=== PATIENT | male | born 1985 | race Two or more races ===

== ENCOUNTER 2021-03-25 04:53 | Inpatient (IN) | payer SELFPAY ==
[~2021-03-25] VITALS: Ht 172.7 cm; Wt 83.0 kg
[2021-03-25] MEDS ORDERED: ONDANSETRON HCL 4 MG/2 ML VIAL IV ONE ×3 (05:30→15:15)
[2021-03-25] MEDS ORDERED: KETOROLAC TROMETH 30 MG/ML 1ML VIAL IV ONE (05:30)
[2021-03-25 05:31] LABS: Basophils # (auto) 0 10 ^3/uL (0-0.2); Basophils % (auto) 0.2 % (0.0-2.0); Eosinophils # (auto) 0 10 ^3/uL (0-0.8); Hematocrit 45.6 % (41.0-53.0); Hemoglobin 16.1 g/dL (13.5-17.5); Lymphocytes # (auto) 1.1 10 ^3/uL (0.4-5.4); Mean Corpuscular Hemoglobin 30.1 pg (28.0-32.0); Mean Corpuscular Hgb Conc. 35.3 g/dL (32.0-36.0); Mean Corpuscular Volume 85.3 fL (80.0-100.0); Monocytes # (auto) 0.4 10 ^3/uL (0-1.3); Monocytes % (auto) 2.6 % (0.0-12.0); Neutrophils # (auto) 13.5 10 ^3/uL (1.6-8.6); Neutrophils % (auto) 90.2 % (37.0-80.0); Nucleated Red Blood Cells % 0.1 %; Platelet Count (auto) 397 10^3/uL (140-450); Red Blood Cells 5.34 10^6/uL (4.5-5.90); Red Cell Distribution Width 13.5 % (11.8-14.3)
[2021-03-25] MEDS ORDERED: IOHEXOL 300 MG/ML 100ML BOTTLE IJ ONE (05:45)
[2021-03-25 05:48] LABS: Albumin 4.5 g/dL (3.4-5.0); Calcium 9.3 mg/dL (8.5-10.1); Potassium 3.4 mmol/L (3.5-5.1)
[2021-03-25 05:51] LABS: BUN/Creatinine Ratio 8.8; Bilirubin, Total 0.7 mg/dL (0.2-1.0); Total Protein 9.2 g/dL (6.4-8.2)
[2021-03-25] MEDS ORDERED: MORPHINE SULFATE 4 MG/ML SYR/VIAL IV ONE (06:00)
[2021-03-25 06:21] LABS: Urine Bacteria NONE SEEN /hpf (None Seen); Urine Blood Negative /uL (Negative); Urine Mucus FEW (None Seen); Urine Specific Gravity 1.028 (1.001-1.035); Urine WBC 1 /hpf (0 - 3)
[2021-03-25] MEDS ORDERED: SODIUM CHLORIDE 0.9% 1,000 ML IVB ONE (08:30)
[2021-03-25] MEDS ORDERED: GASTROGRAFIN 120 ML SOL ONE (08:50)
[2021-03-25 09:05] LABS: Magnesium 2.3 mg/dL (1.6-2.6)
[2021-03-25] MEDS ORDERED: MORPHINE SULF INJ 2 MG/ML SYRINGE 1ML IV ONE ×2 (10:15→15:15)
[2021-03-25] MEDS ORDERED: cefTRIAXone 1GM/50ML D5W 50 ML IV ONE (11:15)
[2021-03-25] MEDS ORDERED: metroNIDAZOLE 500MG/100ML 100 ML IV ONE (11:15)
[2021-03-25] MEDS ORDERED: FAMOTIDINE (10MG/ML) 2ML VL IV SCH ×2 (11:15→11:41)
[2021-03-25] MEDS: SODIUM CHLORIDE 0.9% 1,000 ML IV SCH ×2 (12:55→21:04)
[2021-03-25] MEDS: POTASSIUM CHL 20MEQ/100ML 100 ML IV SCH ×3 (12:55→21:04)
[2021-03-25] MEDS ORDERED: DEXTROSE (50%) 50ML SYRG IV PRN (16:30)
[2021-03-25] MEDS ORDERED: NITROGLYCERIN 0.4 MG SL TAB SL PRN (16:30)
[2021-03-25] MEDS ORDERED: traMADol HCL 50 MG TAB PO PRN (16:30)
[2021-03-25] MEDS ORDERED: TEMAZEPAM 15 MG CAP PO PRN (16:30)
[2021-03-25] MEDS ORDERED: MORPHINE SULF INJ 2 MG/ML SYRINGE 1ML IV PRN (16:30)
[2021-03-25] MEDS ORDERED: ACETAMINOPHEN 500 MG TAB PO PRN (16:30)
[2021-03-25] MEDS: ACCU-CHEK COMFORT CURVE STRIP VI SCH ×2 (17:00→21:32)
[2021-03-25] MEDS: FAMOTIDINE (10MG/ML) 2ML VL IV SCH (19:01)
[2021-03-25 20:39] VITALS: BP 135/76
[2021-03-25] MEDS: MORPHINE SULF INJ 2 MG/ML SYRINGE 1ML IV PRN (21:18)
[2021-03-25] MEDS: metroNIDAZOLE 500MG/100ML 100 ML IV SCH (21:32)
[2021-03-25 22:00] VITALS: BP 127/59
[2021-03-26] MEDS: MORPHINE SULF INJ 2 MG/ML SYRINGE 1ML IV PRN ×5 (01:09→20:00)
[2021-03-26] MEDS: FAMOTIDINE (10MG/ML) 2ML VL IV SCH (04:56)
[2021-03-26 05:00] VITALS: BP 135/62
[2021-03-26] MEDS: metroNIDAZOLE 500MG/100ML 100 ML IV SCH (05:11)
[2021-03-26 05:28] LABS: Basophils # (auto) 0 10 ^3/uL (0-0.2); Basophils % (auto) 0.2 % (0.0-2.0); Eosinophils # (auto) 0.1 10 ^3/uL (0-0.8); Eosinophils % (auto) 1.1 % (0.0-7.0); Hematocrit 39.5 % (41.0-53.0); Hemoglobin 13.4 g/dL (13.5-17.5); Lymphocytes # (auto) 2.3 10 ^3/uL (0.4-5.4); Lymphocytes % (auto) 21.1 % (10.0-50.0); Mean Corpuscular Hemoglobin 29.5 pg (28.0-32.0); Mean Corpuscular Hgb Conc. 33.9 g/dL (32.0-36.0); Mean Corpuscular Volume 87.1 fL (80.0-100.0); Monocytes # (auto) 0.9 10 ^3/uL (0-1.3); Monocytes % (auto) 8.4 % (0.0-12.0); Neutrophils # (auto) 7.5 10 ^3/uL (1.6-8.6); Neutrophils % (auto) 69.2 % (37.0-80.0); Nucleated Red Blood Cells % 0.1 %; Platelet Count (auto) 292 10^3/uL (140-450); Red Blood Cells 4.54 10^6/uL (4.5-5.90); Red Cell Distribution Width 13.6 % (11.8-14.3); White Blood Cell 10.9 10^3/uL (4.4-10.8)
[2021-03-26 05:43] LABS: Albumin 3.2 g/dL (3.4-5.0); Calcium 7.9 mg/dL (8.5-10.1); Potassium 3.8 mmol/L (3.5-5.1)
[2021-03-26 05:48] LABS: BUN/Creatinine Ratio 6.3; Bilirubin, Total 1.2 mg/dL (0.2-1.0)
[2021-03-26] MEDS: ACCU-CHEK COMFORT CURVE STRIP VI SCH ×4 (06:31→21:58)
[2021-03-26 08:30] VITALS: BP 135/58
[2021-03-26 08:46] VITALS: BP 135/58
[2021-03-26] MEDS ORDERED: cefTRIAXone 1GM/50ML D5W 50 ML IV SCH (09:00)
[2021-03-26] MEDS: SUCRALFATE 1 GM/10 ML ORAL SUSP PO SCH ×3 (11:30→21:57)
[2021-03-26 12:08] LABS: INR 1.02 (0.9-1.15)
[2021-03-26] MEDS: SODIUM CHLORIDE 0.9% 1,000 ML IV SCH (12:45)
[2021-03-26 13:00] VITALS: BP 127/68
[2021-03-26] MEDS: PANTOPRAZOLE 40 MG TAB PO SCH ×2 (13:52→21:57)
[2021-03-26 16:45] VITALS: BP 127/71
[2021-03-26 22:00] VITALS: BP 118/63
[2021-03-27] MEDS: MORPHINE SULF INJ 2 MG/ML SYRINGE 1ML IV PRN ×4 (01:20→19:42)
[2021-03-27 04:06] LABS: Alcohol, Urine < 3.0 mg/dL (0-10); Amphetamine Screen, Urine NEGATIVE (NEGATIVE); Barbiturate Scree,Urine NEGATIVE (NEGATIVE); Benzodiazephine Screen, Urine NEGATIVE (NEGATIVE); Cannabinoid Screen, Urine NEGATIVE (NEGATIVE); Cocaine Screen, Urine NEGATIVE (NEGATIVE); Opiate Scree,Urine POSITIVE (NEGATIVE); Phencyclidine Screen, Urine NEGATIVE (NEGATIVE)
[2021-03-27 05:00] VITALS: BP 108/60
[2021-03-27] MEDS: SODIUM CHLORIDE 0.9% 1,000 ML IV SCH ×2 (05:03→14:45)
[2021-03-27 06:25] LABS: Basophils # (auto) 0 10 ^3/uL (0-0.2); Basophils % (auto) 0.3 % (0.0-2.0); Eosinophils # (auto) 0.3 10 ^3/uL (0-0.8); Eosinophils % (auto) 3.6 % (0.0-7.0); Hematocrit 39.3 % (41.0-53.0); Hemoglobin 13.7 g/dL (13.5-17.5); Lymphocytes # (auto) 2.3 10 ^3/uL (0.4-5.4); Lymphocytes % (auto) 26.8 % (10.0-50.0); Mean Corpuscular Hgb Conc. 34.8 g/dL (32.0-36.0); Mean Corpuscular Volume 86.2 fL (80.0-100.0); Monocytes # (auto) 0.8 10 ^3/uL (0-1.3); Monocytes % (auto) 9.1 % (0.0-12.0); Neutrophils # (auto) 5.2 10 ^3/uL (1.6-8.6); Neutrophils % (auto) 60.2 % (37.0-80.0); Nucleated Red Blood Cells % 0.2 %; Platelet Count (auto) 289 10^3/uL (140-450); Red Blood Cells 4.56 10^6/uL (4.5-5.90); Red Cell Distribution Width 13.6 % (11.8-14.3); White Blood Cell 8.7 10^3/uL (4.4-10.8)
[2021-03-27 06:38] LABS: INR 1.04 (0.9-1.15); Partial Thromboplastin Time 29.6 sec (23.0-31.2)
[2021-03-27 06:39] LABS: Calcium 8.3 mg/dL (8.5-10.1); Magnesium 2.2 mg/dL (1.6-2.6); Potassium 3.5 mmol/L (3.5-5.1)
[2021-03-27 06:43] LABS: BUN/Creatinine Ratio 7.1; Bilirubin, Total 0.6 mg/dL (0.2-1.0); Total Protein 7.3 g/dL (6.4-8.2)
[2021-03-27] MEDS: SUCRALFATE 1 GM/10 ML ORAL SUSP PO SCH ×3 (07:22→17:13)
[2021-03-27] MEDS: ACCU-CHEK COMFORT CURVE STRIP VI SCH (07:23)
[2021-03-27 07:45] VITALS: BP 117/70
[2021-03-27] MEDS ORDERED: SODIUM CHLORIDE LOCK 10 ML ONE (08:15)
[2021-03-27] MEDS ORDERED: LIDOCAINE VISCOUS 2% 15ML UD ONE (08:15)
[2021-03-27] MEDS ORDERED: diphenhdrAMINE HCL 50 MG/1 ML VL ONE (08:16)
[2021-03-27 09:00] VITALS: BP 117/70
[2021-03-27] MEDS: PANTOPRAZOLE 40 MG TAB PO SCH (09:22)
[2021-03-27] MEDS: fentaNYL CITRATE 100 MCG/2 ML VL ONE ×2 (10:21→10:24)
[2021-03-27] MEDS: MIDAZOLAM HCL 5 MG/ML-1ML VIAL ONE ×2 (10:21→10:24)
[2021-03-27 13:00] VITALS: BP 104/62
[2021-03-27 16:42] VITALS: BP 108/74
[2021-03-27 22:00] VITALS: BP 123/76
[2021-03-28 00:53] VITALS: BP 129/70
[2021-03-28 01:53] VITALS: BP 121/72
[2021-03-28] MEDS: SUCRALFATE 1 GM/10 ML ORAL SUSP PO SCH ×5 (03:09→21:39)
[2021-03-28] MEDS: PANTOPRAZOLE 40 MG TAB PO SCH ×2 (03:09→09:26)
[2021-03-28 05:00] VITALS: BP 110/57
[2021-03-28 07:20] LABS: Albumin 2.7 g/dL (3.4-5.0); Potassium 3.6 mmol/L (3.5-5.1)
[2021-03-28 07:25] LABS: Bilirubin, Direct 0.2 mg/dL (0-0.2); Bilirubin, Total 0.4 mg/dL (0.2-1.0); Total Protein 6.9 g/dL (6.4-8.2)
[2021-03-28] MEDS: SODIUM CHLORIDE 0.9% 1,000 ML IV SCH ×3 (09:26→21:39)
[2021-03-28] MEDS ORDERED: levoFLOXacin 500MG 100 ML IV ONE (11:15)
[2021-03-28 13:00] VITALS: BP 105/67
[2021-03-28] MEDS: metroNIDAZOLE 500MG/100ML 100 ML IV SCH ×2 (13:39→21:39)
[2021-03-28 16:41] VITALS: BP 108/67
[2021-03-28] MEDS: MORPHINE SULF INJ 2 MG/ML SYRINGE 1ML IV PRN (21:55)
[2021-03-28 22:00] VITALS: BP 118/70
[2021-03-29] MEDS: MORPHINE SULF INJ 2 MG/ML SYRINGE 1ML IV PRN (03:28)
[2021-03-29 05:00] VITALS: BP 101/57
[2021-03-29] MEDS: SUCRALFATE 1 GM/10 ML ORAL SUSP PO SCH ×4 (06:10→21:38)
[2021-03-29] MEDS: metroNIDAZOLE 500MG/100ML 100 ML IV SCH ×3 (06:10→21:38)
[2021-03-29 06:30] LABS: Basophils # (auto) 0 10 ^3/uL (0-0.2); Basophils % (auto) 0.5 % (0.0-2.0); Eosinophils # (auto) 0.4 10 ^3/uL (0-0.8); Eosinophils % (auto) 5.7 % (0.0-7.0); Hematocrit 39.4 % (41.0-53.0); Hemoglobin 13.5 g/dL (13.5-17.5); Lymphocytes # (auto) 2.6 10 ^3/uL (0.4-5.4); Lymphocytes % (auto) 34.5 % (10.0-50.0); Mean Corpuscular Hemoglobin 29.6 pg (28.0-32.0); Mean Corpuscular Hgb Conc. 34.3 g/dL (32.0-36.0); Mean Corpuscular Volume 86.3 fL (80.0-100.0); Monocytes # (auto) 0.4 10 ^3/uL (0-1.3); Monocytes % (auto) 5.4 % (0.0-12.0); Neutrophils % (auto) 53.9 % (37.0-80.0); Nucleated Red Blood Cells % 0.1 %; Platelet Count (auto) 359 10^3/uL (140-450); Red Blood Cells 4.56 10^6/uL (4.5-5.90); Red Cell Distribution Width 13.4 % (11.8-14.3); White Blood Cell 7.4 10^3/uL (4.4-10.8)
[2021-03-29 06:51] LABS: Albumin 2.8 g/dL (3.4-5.0); Calcium 8.3 mg/dL (8.5-10.1); Potassium 3.4 mmol/L (3.5-5.1)
[2021-03-29 06:53] LABS: BUN/Creatinine Ratio 11.5
[2021-03-29 06:55] LABS: Bilirubin, Total 0.3 mg/dL (0.2-1.0)
[2021-03-29] MEDS ORDERED: ceFAZolin 1GM/50ML 50 ML IV ONE (08:11)
[2021-03-29] MEDS ORDERED: LIDOCAINE W/ EPINEPHRINE 1% 20ML VIAL ONE (08:38)
[2021-03-29] MEDS ORDERED: BUPIVACAINE 0.5% P/F INJ 10 ML VIAL ONE (08:39)
[2021-03-29] MEDS ORDERED: SUCCINYLCHOLINE CHLORIDE 20 MG/ML 10ML VIAL IV ONE (08:45)
[2021-03-29 08:54] VITALS: BP 112/64
[2021-03-29] MEDS ORDERED: MIDAZOLAM HCL 1MG/1ML-2 ML VIAL ONE (08:54)
[2021-03-29] MEDS ORDERED: fentaNYL CITRATE 100 MCG/2 ML VL ONE (08:54)
[2021-03-29] MEDS ORDERED: MEPERIDINE HCL (50 MG/ML) 1 ML VIAL ONE (08:54)
[2021-03-29] MEDS ORDERED: MIDAZOLAM HCL 1MG/1ML-2 ML VIAL IV PRN (09:00)
[2021-03-29] MEDS ORDERED: ePHEDrine SULFATE 50 MG/ML AMP IV PRN (09:00)
[2021-03-29] MEDS ORDERED: ONDANSETRON HCL 4 MG/2 ML VIAL IV PRN (09:00)
[2021-03-29] MEDS ORDERED: MORPHINE SULFATE 4 MG/ML SYR/VIAL IV PRN (09:00)
[2021-03-29] MEDS ORDERED: LABETALOL HCL 5 MG/ML 4ML SYRINGE IV PRN (09:00)
[2021-03-29] MEDS ORDERED: DexAMETHasone SOD PHOS 10MG/1ML VIAL INJ ONE (09:06)
[2021-03-29] MEDS ORDERED: PROPOFOL 10 MG/ML 20 ML IV ONE (09:06)
[2021-03-29] MEDS ORDERED: GLYCOPYRROLATE 0.2 MG/ML 1ML VIAL ONE (09:40)
[2021-03-29] MEDS ORDERED: NEOSTIGMINE 1 MG/ML INJ (10mg/10ML VIAL) ONE (09:40)
[2021-03-29] MEDS: HYDROmorphone HCL 2 MG/ML VL IV PRN ×6 (10:18→18:29)
[2021-03-29] MEDS: PANTOPRAZOLE 40 MG/10 ML VIAL INJ IV SCH (11:21)
[2021-03-29] MEDS: levoFLOXacin 500MG 100 ML IV SCH (11:22)
[2021-03-29] MEDS ORDERED: POTASSIUM CHLORIDE 40 MEQ, LIDOCAINE 1% (LOCAL ANESTH.) 4 ML in SODIUM CHL 0.9% 250 ML IV ONE (11:30)
[2021-03-29] MEDS: PROMETHAZINE HCL 25 MG/ML 1ML IV PRN ×3 (11:59→18:27)
[2021-03-29] MEDS: SODIUM CHLORIDE 0.9% 1,000 ML IV SCH ×2 (12:55→18:20)
[2021-03-29 13:00] VITALS: BP 140/71
[2021-03-29 16:42] VITALS: BP 115/59
[2021-03-29 20:00] VITALS: BP 129/76
[2021-03-29 22:00] VITALS: BP 129/76
[2021-03-30] MEDS: PROMETHAZINE HCL 25 MG/ML 1ML IV PRN ×2 (00:15→06:14)
[2021-03-30] MEDS: HYDROmorphone HCL 2 MG/ML VL IV PRN ×2 (00:15→06:13)
[2021-03-30] MEDS: SODIUM CHLORIDE 0.9% 1,000 ML IV SCH ×2 (03:30→13:33)
[2021-03-30 05:00] VITALS: BP 136/55
[2021-03-30 05:33] LABS: Basophils # (auto) 0 10 ^3/uL (0-0.2); Basophils % (auto) 0.1 % (0.0-2.0); Eosinophils # (auto) 0 10 ^3/uL (0-0.8); Hemoglobin 12.9 g/dL (13.5-17.5); Lymphocytes # (auto) 1.3 10 ^3/uL (0.4-5.4); Lymphocytes % (auto) 13.2 % (10.0-50.0); Mean Corpuscular Hgb Conc. 34.8 g/dL (32.0-36.0); Mean Corpuscular Volume 86.3 fL (80.0-100.0); Monocytes # (auto) 0.5 10 ^3/uL (0-1.3); Monocytes % (auto) 5.2 % (0.0-12.0); Neutrophils # (auto) 8.1 10 ^3/uL (1.6-8.6); Neutrophils % (auto) 81.5 % (37.0-80.0); Platelet Count (auto) 370 10^3/uL (140-450); Red Blood Cells 4.29 10^6/uL (4.5-5.90)
[2021-03-30 05:52] LABS: Potassium 4.1 mmol/L (3.5-5.1)
[2021-03-30 06:08] LABS: Albumin 2.9 g/dL (3.4-5.0); BUN/Creatinine Ratio 7.8; Bilirubin, Total 0.3 mg/dL (0.2-1.0); Calcium 8.6 mg/dL (8.5-10.1)
[2021-03-30] MEDS: metroNIDAZOLE 500MG/100ML 100 ML IV SCH ×2 (06:12→13:45)
[2021-03-30] MEDS: SUCRALFATE 1 GM/10 ML ORAL SUSP PO SCH ×2 (06:13→12:22)
[2021-03-30 09:00] VITALS: BP 104/48
[2021-03-30] MEDS: levoFLOXacin 500MG 100 ML IV SCH (09:58)
[2021-03-30] MEDS: PANTOPRAZOLE 40 MG/10 ML VIAL INJ IV SCH (09:59)
[2021-03-30 13:00] VITALS: BP 132/82
== END 2021-03-30 16:00 | disposition home or self-care (01) | DRG 854 ==
LOC: ER 04:53 → TELE 16:21 → TELE-WESTW 19:26 → OBSVTOIN 03-28 02:33
PROVIDERS: ADMIT Internal Medicine; ATTEND Internal Medicine
PROC: 0DB68ZX Excision of Stomach, Via Natural or Artificial Opening Endoscopic, Diagnostic (ICD-10-PCS; 2021-03-27)
PROC: 0FT44ZZ Resection of Gallbladder, Percutaneous Endoscopic Approach (ICD-10-PCS; principal; 2021-03-29 08:29)
DX: A41.9 Sepsis, unspecified organism (principal); K80.00 Calculus of gallbladder with acute cholecystitis without obstruction; K56.0 Paralytic ileus; K29.70 Gastritis, unspecified, without bleeding; R65.10 Systemic inflammatory response syndrome (SIRS) of non-infectious origin without acute organ dysfunction; K76.0 Fatty (change of) liver, not elsewhere classified; K59.01 Slow transit constipation; E87.6 Hypokalemia; Z20.822 Contact with and (suspected) exposure to COVID-19; Z82.61 Family history of arthritis; Z83.3 Family history of diabetes mellitus; R73.9 Hyperglycemia, unspecified; R00.1 Bradycardia, unspecified; E66.3 Overweight; K29.80 Duodenitis without bleeding
CPT/HCPCS: 36415; 74177; 74250; 76705; 80053; 80076; 80307; 81001; 82150; 82962; 83036; 83690; 83735; 84132; 84443; 85025; 85610; 85730; 86850; 86900; 86901; 87070; 87075; 87205; 87426; 96361; 96365; 96368; 96375; 96376; C9113; G0378; J0330; J0690; J0696; J1100; J1885; J1956; J2001; J2250; J2405; J2704; J3480; J3490